=== PATIENT | female | born 1970 | race Hispanic/Latino ===

== ENCOUNTER 2022-11-18 06:45 | Day surgery (SDC) | payer OTHER ==
[2022-11-16 13:23] LABS: BASOPHILS % (AUTO) 0.2 % (0.0-5.0); EOSINOPHILS % (AUTO) 0.4 % (0.0-8.0); HEMATOCRIT 35.2 % (36-48); MEAN CORPUSCULAR HEMOGLOBIN 30.5 pg (27.0-33.0); MEAN CORPUSCULAR HGB CONC 32.7 g/dL (32.0-36.0); MEAN CORPUSCULAR VOLUME 93.4 fL (79-99); MONOCYTES % (AUTO) 6.6 % (3.0-13.0); NEUTROPHILS % (AUTO) 73.6 % (40.0-77.0); PLATELET COUNT (AUTO) 290 K/uL (130-400); RED BLOOD CELL COUNT(AUTO) 3.77 MIL/uL (4.00-5.50); RED CELL DISTRIBUTION WIDTH 13.6 % (11.0-15.5); WHITE BLOOD COUNT (AUTO) 9.3 K/uL (4.8-10.8)
[2022-11-16 13:34] LABS: APPEARANCE,URINE CLEAR (CLEAR); BILIRUBIN,URINE NEGATIVE (NEGATIVE); COLOR,URINE LIGHT-YELLOW (YELLOW); GLUCOSE, URINE (UA) NEGATIVE (NEGATIVE); KETONES,URINE NEGATIVE (NEGATIVE); LEUKOCYTE ESTERASE ,URINE NEGATIVE Leu/uL (NEGATIVE); NITRATE,URINE NEGATIVE (NEGATIVE); OCCULT BLOOD,URINE MODERATE (NEGATIVE); PROTEIN,URINE NEGATIVE (NEGATIVE); UROBILINOGEN,URINE 0.2 mg/dL (0.2-1.0)
[2022-11-16 13:36] LABS: CREATININE 0.6 mg/dL (0.5-1.5); POTASSIUM 4.3 mmol/L (3.5-5.1)
[2022-11-16 13:37] LABS: INR 0.93 (0.85-1.15); PROTHROMBIN TIME 10.7 SEC (9.6-11.6)
[2022-11-16 13:38] LABS: PARTIAL THROMBOPLASTIN TIME 26.2 SEC (26.3-35.5)
[2022-11-16 13:40] LABS: BACTERIA,URINE RARE /HPF (None Seen); MUCUS,URINE RARE LPF (None Seen); SQUAMOUS EPITHELIAL CELL,UR FEW /HPF (0-2)
[2022-11-16 13:48] VITALS: BP 118/67
[2022-11-16 13:57] LABS: B-TYPE NATRIURETIC PEPTIDE 19 pg/mL (0-100)
[~2022-11-18] VITALS: Ht 152.4 cm; Wt 54.5 kg
[2022-11-18] VITALS (9 sets, daily range): BP systolic 93–112; BP diastolic 47–70
[~2022-11-18 06:45] MED LIST: 0.9% NACL 500ML IV.SOLN 500 ML IV SCH; AEC81 PO; ISOS30TA92 PO; METO-408 PO
[2022-11-18] MEDS ORDERED: 0.9%NACL 1000ML 1,000 ML IV ONE (07:44)
[2022-11-18] MEDS ORDERED: LIDOCAINE HCL 400MG/20ML VIAL ONE (12:01)
[2022-11-18] MEDS ORDERED: IOHEXOL-350 50ML VIAL IV ONE (12:01)
[2022-11-18] MEDS ORDERED: SODIUM BICARB 50MEQ 50ML VIAL 50 ML ONE (12:01)
[2022-11-18] MEDS ORDERED: FENTANYL CITRATE PF 50 MCG/1 ML 2ML VIAL ONE (12:01)
[2022-11-18] MEDS ORDERED: IOHEXOL 350 MG/ML 100ML INFUS..BTL IV ONE (12:01)
[2022-11-18] MEDS ORDERED: MIDAZOLAM HCL 1 MG/ML 2ML VIAL ONE (12:01)
[2022-11-18] MEDS ORDERED: NITROGLYCERIN 50MG VIAL ONE (12:02)
[2022-11-18] MEDS ORDERED: NICARDIPINE 25MG INJ IV ONE (12:02)
[2022-11-18] MEDS ORDERED: HEPARIN 10,000 UNIT/10ML (1,000 UNIT/ML) VIAL ONE (12:02)
[2022-11-18] MEDS ORDERED: 0.9% NACL 500ML IV.SOLN 500 ML IV SCH (13:00)
== END 2022-11-18 16:15 | disposition home or self-care (01) ==
LOC: DAH 06:45
PROVIDERS: ATTEND Internal Medicine Cardiovascular Disease
DX: R94.39 Abnormal result of other cardiovascular function study (principal); R07.89 Other chest pain; I20.9 Angina pectoris, unspecified; E78.00 Pure hypercholesterolemia, unspecified; Z79.899 Other long term (current) drug therapy; Z79.82 Long term (current) use of aspirin; Z82.49 Family history of ischemic heart disease and other diseases of the circulatory system; Z88.8 Allergy status to other drugs, medicaments and biological substances
CPT/HCPCS: 80048; 83880; 85025; 85610; 85730; 81001; 36415; 71045; 93005; 93458; C1769; C1894 ×2; J3010; J3490 ×4; J7030; J1644 ×2; J2250; Q9967; A4215; A4222; A4221; A4663; A4216; A4606; Q9965; A4223 ×3; 99156; 99157

== ENCOUNTER 2024-11-14 06:54 | Day surgery (SDC) | payer OTHER ==
[~2024-11-14] VITALS: Ht 152.4 cm; Wt 57.6 kg
[2024-11-14] VITALS (12 sets, daily range): BP systolic 110–138; BP diastolic 65–78; PULSE 68–83; RESP 15–19; TEMP 97.5–97.8
[2024-11-14] MEDS: 0.9%NACL 1000ML 1,000 ML IV ONE (08:19)
== END 2024-11-14 10:43 | disposition home or self-care (01) ==
LOC: ENDO 06:54 → DAH 06:54 → ENDO 10:43
PROVIDERS: ATTEND Internal Medicine Gastroenterology
DX: R10.13 Epigastric pain (principal); K29.50 Unspecified chronic gastritis without bleeding; K31.89 Other diseases of stomach and duodenum; K44.9 Diaphragmatic hernia without obstruction or gangrene; R10.84 Generalized abdominal pain; K59.04 Chronic idiopathic constipation; E78.2 Mixed hyperlipidemia; Z79.899 Other long term (current) drug therapy; Z88.8 Allergy status to other drugs, medicaments and biological substances
CPT/HCPCS: 43239; J7030; J2704; A4620; A4215; J3490